=== PATIENT | male | born 1990 | race Caucasian/White ===

== ENCOUNTER 2017-07-30 10:42 | Emergency (ER) | payer OTHER, MEDICAID ==
[2017-07-30 10:44] VITALS: BP 132/77
== END 2017-07-30 11:52 | disposition home or self-care (01) ==
LOC: ED 10:42
DX: B34.9 Viral infection, unspecified (principal); R03.0 Elevated blood-pressure reading, without diagnosis of hypertension; F17.200 Nicotine dependence, unspecified, uncomplicated; Z71.6 Tobacco abuse counseling
CPT/HCPCS: 99406; J7613; J7644; Q0162

== ENCOUNTER 2019-06-21 21:24 | Emergency (ER) | payer OTHER ==
[~2019-06-21] VITALS: Ht 188 cm; Wt 94.8 kg
[2019-06-21 21:29] VITALS: Ht 188 cm; Wt 94.8 kg
[2019-06-21 23:04] LABS: CALCIUM 9.5 mg/dL (8.5-10.1); CARBON DIOXIDE 27.1 mmol/L (21-32); CREATININE SERUM 1.7 mg/dL (0.7-1.3); POTASSIUM SERUM 3.3 mmol/L (3.5-5.1)
[2019-06-21 23:08] LABS: ALBUMIN 4.4 g/dL (3.4-5.0); BILIRUBIN TOTAL 1.11 mg/dL (0.20-1.00)
[2019-06-21 23:09] LABS: BASOPHIL % 0.2 % (0-2); PLATELET COUNT 296 x10^3mcL (130-400); RED CELL DISTRIBUTION WIDTH 13.3 % (11.5-14.5)
[2019-06-21 23:47] VITALS: BP 134/90
== END 2019-06-21 23:47 | disposition home or self-care (01) ==
LOC: ED 21:24
PROVIDERS: Emergency Medicine
DX: N20.0 Calculus of kidney (principal); N28.9 Disorder of kidney and ureter, unspecified
CPT/HCPCS: J1885; J2405; J7030